=== PATIENT | male | born 2000 | race Caucasian/White ===

== ENCOUNTER 2020-03-02 18:54 | Emergency (ER) | payer SELFPAY ==
[2020-03-02] MEDS ORDERED: DIPH/PERTUSS(ACELL)/TETANUS VAC/PF 0.5 ML SYR (>=10YO) IM ONE (19:30)
[2020-03-02] MEDS ORDERED: ACETAMINOPHEN 325 MG TABLET PO ONE (19:30)
[2020-03-02] MEDS ORDERED: CEPHALEXIN 500 MG CAPSULE PO ONE (19:31)
--- NOTE | 2020-03-02 19:37 | ER Document Report ---
HPI - HPI Patient complains to provider of: Facial injury Time Seen by Provider: 03/02/20 19:27 Onset: This evening Onset/Duration: Sudden Quality of pain: Achy Pain Level: 3 Context: Patient was cranking a handle of a cable spool and it spun around hitting him in the face. Patient with lacerations to the lower chin area, superficial lacerations to the oral mucosa. Patient reports small chip to the tooth. Associated Symptoms: Other - She will lacerations Exacerbated by: Denies Relieved by: Denies Similar symptoms previously: No Recently seen / treated by doctor: No - ROS ROS below otherwise negative: Yes Systems Reviewed and Negative: Yes All other systems reviewed and negative - EENT Notes: Dental injury, facial laceration - NEURO Neurology: DENIES: Headache - RESPIRATORY Respiratory: DENIES: Coughing - GASTROINTESTINAL Gastrointestinal: DENIES: Nausea, Patient vomiting - MUSCULOSKELETAL Musculoskeletal: DENIES: Back Pain, Neck Pain - DERM Skin Color: Normal Skin Problems: Laceration Past Medical History - General Information source: Patient - Social History Smoking Status: Never Smoker Frequency of alcohol use: None Drug Abuse: None Occupation: [employer] Family History: Reviewed & Not Pertinent - Medical History Medical History: Negative Surgical Hx: Negative Vertical Provider Document - CONSTITUTIONAL Agree With Documented VS: Yes Exam Limitations: No Limitations General Appearance: WD/WN, No Apparent Distress - HEENT HEENT: Normocephalic, PERRLA Mouth Diagram: 1 - Chipped tooth 2 - Superficial laceration to the labial mucosa - NECK Neck: Normal Inspection, Supple. negative: Lymphadenopathy-Left, Lymphadenopathy-Right - RESPIRATORY Respiratory: Breath Sounds Normal, No Respiratory Distress - CARDIOVASCULAR Cardiovascular: Regular Rate, Regular Rhythm - BACK Back: Normal Inspection - MUSCULOSKELETAL/EXTREMETIES Musculoskeletal/Extremeties: KAREN OSORIO - NEURO Level of Consciousness: Awake, Alert, Appropriate Motor/Sensory: No Motor Deficit - DERM Integumentary: Warm, Dry, Laceration - Irregular laceration x2 to anterior chin area, more superior irregular laceration does communicate through and through to lingual mucosal laceration, second inferior facial laceration does not communicate to the lingual mucosa. Course - Re-evaluation Re-evalutation: 03/02/20 20:[address] imaging noticed a retained radiopaque foreign body to the left lower lip area. Wound was then explored and a small dental fragment was removed. Consulted with Dr. Ardon who came to bedside for examination. He advises irrigation of the wound, prescribing Augmentin for antibiotic coverage and suturing wound closed. Does not recommend reimaging at this time. Does recommend outpatient follow-up with his dental care provider. 03/02/20 21:39 After wound was anesthetized and explored, 2 dental fragments were removed from a more superior external facial chin laceration. Wound was then closed. Patient encouraged to follow-up with dental care provider, good return precautions discussed. - Vital Signs Vital signs: Temp Pulse Resp BP Pulse Ox 98.6 F 85 16 134/52 H 100 03/02/20 19:06 03/02/20 19:06 03/02/20 19:06 03/02/20 19:06 03/02/20 19:06 - Diagnostic Test Radiology reviewed: Image reviewed, Reports reviewed Procedures - Laceration/Wound Repair Face Wound length (cm): 1 Wound's Depth, Shape: Irregular Anesthetic type: 1% Lidocaine Wound explored: Foreign body removed Irrigated w/ Saline (mLs): 60 Wound Repaired With: Sutures Suture Size/Type: 6:0, Nylon Number of Sutures: 2 Layer Closure?: No Post-procedure NV exam normal: Yes Complications: No Notes: 03/02/20 21:37 2 dental chip fragments removed from the wound Lower Face Wound length (cm): 0.5 Wound's Depth, Shape: Linear Anesthetic type: 1% Lidocaine Wound explored: No foreign body removed Wound Repaired With: Sutures Suture Size/Type: 6:0, Nylon Number of Sutures: 1 Post-procedure NV exam normal: Yes Complications: No Adult Head Front/Back picture: 1 - irreg 1 cm lac 2 - 0.5 cm lac Discharge - Discharge Clinical Impression: Laceration of oral cavity Qualifiers: Encounter type: initial encounter Qualified Code(s): S01.512A - Laceration without foreign body of oral cavity, initial encounter Facial laceration Qualifiers: Encounter type: initial encounter Qualified Code(s): S01.81XA - Laceration without foreign body of other part of head, initial encounter Dental injury Qualifiers: Encounter type: initial encounter Qualified Code(s): S09.93XA - Unspecified injury of face, initial encounter Condition: Stable Disposition: HOME, SELF-CARE Instructions: Laceration Care ([facility]), Prophylactic Antibiotic ([facility]), Tetanus Immunization Given ([facility]) Additional Instructions: Return immediately for any new or worsening symptoms Followup with your primary care provider, call tomorrow to make a followup appointment Follow-up with your dental care provider, call tomorrow for an appointment Suture removal in 5 days Prescriptions: Amoxicillin/Potassium Clav [Augmentin 875-125 Tablet] 1 tab PO BID #14 tab Hydrocodone/Acetaminophen [[place] 5-325 mg Tablet] 1 tab PO Q6 PRN #10 tablet PRN Reason: Referrals: MUKUND PHOENIX DMD [ACTIVE STAFF] - Follow up as needed
--- NOTE | 2020-03-02 19:59 | RADIOLOGY REPORT (SQ) ---
EXAM DESCRIPTION: CT FACIAL AREA WITHOUT IMAGES COMPLETED DATE/TIME: 03/02/2020 7:47 pm REASON FOR STUDY: facial injury, struck with handle of cable crank COMPARISON: None. TECHNIQUE: Noncontrasted images through the facial bones and orbits windowed for bone and soft tissu e. Additional coronal and sagittal reconstructed images reviewed. All images stored on PACS. All CT scanners at this facility use dose modulation, iterative reconstruction, and/or weight based d osing when appropriate to reduce radiation dose to as low as reasonably achievable (ALARA). [facility]: Dose Right [facility]: CareDose [facility]: Dose Right [facility]: Teradose 4D [facility]: [employer] RADIATION DOSE: CT Rad equipment meets quality standard of care and radiation dose reduction techniq ues were employed. CTDIvol: 30.4 mGy. DLP: 608 mGy-cm. mGy. LIMITATIONS: None. FINDINGS: FACIAL BONES: No fracture or bone lesion. ORBITS: Intact. No fracture. Symmetric intact globes and retroorbital soft tissues. PARANASAL SINUSES: Small mucous retention cyst in the left maxillary sinus. No nasal polyps. Maxilla ry sinus outlets are patent. SOFT TISSUES: There appears be a radiopaque foreign body in the lower lip just to the left of the mid line. INFERIOR BRAIN: Limited view. No acute findings. OTHER: No other significant finding. IMPRESSION: No acute osseous finding. Mild left maxillary sinus disease. Small radiopaque foreign body in the lower lip just to the left of the midline. TECHNICAL DOCUMENTATION: JOB ID: [id number] Quality ID # [id number]: Final reports with documentation of one or more dose reduction techniques (e.g., Au tomated exposure control, adjustment of the mA and/or kV according to patient size, use of iterative reconstruction technique) 2010 [employer]- All Rights Reserved Reading location - IP/workstation name: [email or web address]
[2020-03-02] MEDS ORDERED: LIDOCAINE 4% CREAM 5 GM TUBE TP ONE (20:39)
[2020-03-02] MEDS ORDERED: LIDOCAINE 1% INJ-PF (10 MG/ML) 30 ML SDV INJ ONE (20:48)
[2020-03-02] MEDS ORDERED: AMOXICILLIN TR/POT CLAVULANATE 875-125 MG TAB PO ONE (20:48)
[2020-03-02 21:45] VITALS: BP 138/79
== END 2020-03-02 21:45 | disposition home or self-care (01) ==
LOC: ER 18:54
DX: S01.82XA Laceration with foreign body of other part of head, initial encounter (principal); S01.512A Laceration without foreign body of oral cavity, initial encounter; W20.8XXA Other cause of strike by thrown, projected or falling object, initial encounter; Y93.89 Activity, other specified; Z23 Encounter for immunization
CPT/HCPCS: 99284; 90471; 70486; 90715; 40830; J3490 ×2